=== PATIENT | female | born 1965 | race Caucasian/White ===

== ENCOUNTER → 2016-07-08 | Outpatient (REF) ==
--- NOTE | 2016-07-08 13:51 | REP ---
LUMBOSACRAL SPINE: AP and lateral views of the lumbosacral spine performed with three total views obtained. There is no compression fracture or malalignment. There is normal lumbar lordosis with no spondylolysis or spondylolisthesis. There is mild diffuse spurring. There is mild disc space narrowing and subchondral sclerosis, as well as sclerosis and spurring at the posterior facet joints, at L4-5 and L5-S1. The posterior elements are intact. Metallic clips are seen in the right upper quadrant. Two calcific densities overlie the lower pole of the left kidney measuring 4 and 2 mm in diameter likely representing renal calculi. IMPRESSION: Degenerative changes as discussed above. There appear to be two small calculi in the lower pole of the left kidney. Signed by Jonatan Dixon MD 07/08/2016 02:29 P
== END ==
LOC: M SMT 13:00
PROVIDERS: ATTEND Internal Medicine
DX: Z02.1 Encounter for pre-employment examination (principal)

== ENCOUNTER → 2021-01-07 | Outpatient (REF) ==
--- NOTE | 2021-01-07 13:28 | REP ---
INDICATION: PAIN COMPARISON: None. TECHNIQUE: AP, lateral, coned-down views of the lumbar spine. FINDINGS: Three views of the lumbosacral spine demonstrate satisfactory alignment and lordosis without acute fracture / compression injury or subluxation. Scattered age-related changes are appreciated including endplate sclerosis and spurring at T12-L1, and L2-3, and minimal disc space narrowing primarily L5-S1 and L4-5. IMPRESSION: 1. No acute fracture / compression injury or subluxation. 2. Relatively mild age-related degenerative changes. <Electronically signed by Mykel Post > 01/07/21 [id number]
== END ==
LOC: M PLAIMG 12:25
PROVIDERS: ATTEND Internal Medicine
DX: M54.9 Dorsalgia, unspecified (principal)